=== PATIENT | female | born 1940 | race Two or more races ===

== ENCOUNTER 2025-07-13 16:37 | Inpatient (IN) | payer MEDICARE, OTHER ==
[~2025-07-13] VITALS: Ht 162.6 cm; Wt 73.9 kg
[2025-07-13 17:55] LABS: PLATELET COUNT (AUTO) 149 K/uL (150-450); RED BLOOD CELL COUNT(AUTO) 4.87 MIL/uL (4.0-5.2); RED CELL DISTRIBUTION WIDTH 16.1 % (11.5-15.0); WHITE BLOOD COUNT (AUTO) 6.1 K/uL (4.3-11.0)
[2025-07-13 18:01] LABS: CALCIUM, SERUM 9.2 mg/dL (8.5-10.1); CREATININE 1.2 mg/dL (0.6-1.3); SERUM AMMONIA 3 umol/L (11-32); SODIUM SERUM 143 mmol/L (136-145); UREA NITROGEN, BLOOD 38 mg/dL (7-18)
[2025-07-13 18:06] LABS: ASPARTATE AMINOTRANSFERASE 28 U/L (15-37); TOTAL PROTEIN, SERUM 7.1 g/dL (6.4-8.2)
[2025-07-13 18:07] LABS: ALCOHOL, BLOOD < 3 mg/dL (0-10)
[2025-07-13 18:13] LABS: APPEARANCE,URINE SLIGHTLY CLOUDY (CLEAR); BLOOD, URINE 1+ Ery/uL (NEGATIVE); LEUKOCYTE ESTERASE ,URINE 2+ (NEGATIVE); NITRITE, URINE NEGATIVE (NEGATIVE); UGLUCOSE 1+ mg/dL (NEGATIVE)
[2025-07-13 18:20] LABS: AMPHETAMINE, URINE NEGATIVE (NEGATIVE); BARBITURATE, URINE NEGATIVE (NEGATIVE); BENZODIAZEPINE, URINE NEGATIVE (NEGATIVE); CANNABINOID, URINE NEGATIVE (NEGATIVE); COCCAINE, URINE NEGATIVE (NEGATIVE); OPIATE, URINE NEGATIVE (NEGATIVE)
[2025-07-13 18:30] LABS: ADD URINE CULTURE YES; SQUAMOUS EPITHELIAL CELL,UR Few /HPF (None Seen); YEAST,URINE Moderate /HPF (None Seen)
[2025-07-13] MEDS ORDERED: L. A1TAB10 PO (18:48)
[2025-07-13] MEDS ORDERED: BUPR150T5 PO (18:48)
[2025-07-13] MEDS ORDERED: METO25TA6 PO (18:48)
[2025-07-13] MEDS ORDERED: LINA290C PO (18:48)
[2025-07-13] MEDS ORDERED: ALBU5SOL7 IH (18:48)
[2025-07-13] MEDS ORDERED: DAPA5TAB PO (18:48)
[2025-07-13] MEDS ORDERED: NETA2.5D3 EACHEYE (18:48)
[2025-07-13] MEDS ORDERED: MELA5TAB PO (18:48)
[2025-07-13] MEDS ORDERED: ERGO500040 PO (18:48)
[2025-07-13] MEDS ORDERED: MAGN400T26 PO (18:48)
[2025-07-13] MEDS ORDERED: CLON0.5T4 PO (18:48)
[2025-07-13] MEDS ORDERED: DICL100G34 TP (18:48)
[2025-07-13] MEDS ORDERED: BUDE0.5A4 IH (18:48)
[2025-07-13] MEDS ORDERED: APIX2.5T PO (18:48)
[2025-07-13] MEDS ORDERED: ESCI20TA PO (18:48)
[2025-07-13] MEDS ORDERED: ACET-73 PO (18:48)
[2025-07-13] MEDS ORDERED: TIMO5DRO31 EACHEYE (18:48)
[2025-07-13] MEDS ORDERED: FURO-145 PO (18:48)
[2025-07-13] MEDS ORDERED: GUAI600T53 PO (18:48)
[2025-07-13] MEDS ORDERED: ATOR10TA PO (18:48)
[2025-07-13] MEDS ORDERED: BACL5TAB PO ×2 (18:48)
[2025-07-13] MEDS ORDERED: SIME80TA15 PO (18:48)
[2025-07-13] MEDS ORDERED: BISA5TAB10 PO (18:48)
[2025-07-13] MEDS ORDERED: PANT40TA49 PO (18:48)
[2025-07-13 20:30] VITALS: BP 140/86; TEMP 97.5; O2SAT 98
[2025-07-13] MEDS ORDERED: MAGNESIUM HYDROXIDE 30 ML UDC PO PRN (20:30)
[2025-07-13] MEDS ORDERED: GUAIFENESIN LA 600 MG TABLET.SA PO PRN (20:30)
[2025-07-13] MEDS ORDERED: ONDANSETRON HCL/PF 4 MG/2 ML VIAL IVP PRN (20:30)
[2025-07-13] MEDS ORDERED: ACETAMINOPHEN 325 MG TABLET PO PRN (20:30)
[2025-07-13] MEDS: FLUCONAZOLE (100 MG) 100 MG TABLET PO ONE (21:49)
[2025-07-13] MEDS: ATORVASTATIN 10 MG TABLET PO SCH (21:49)
[2025-07-13] MEDS: CEFTRIAXONE 1 G in IV D5W 50 ML IV SCH (21:50)
[2025-07-14] VITALS (11 sets, daily range): BP systolic 131–144; BP diastolic 78–96; TEMP 97.5–98.2; O2SAT 97–100
[2025-07-14 06:19] LABS: PLATELET COUNT (AUTO) 143 K/uL (150-450); RED BLOOD CELL COUNT(AUTO) 4.63 MIL/uL (4.0-5.2); RED CELL DISTRIBUTION WIDTH 16.0 % (11.5-15.0); WHITE BLOOD COUNT (AUTO) 6.9 K/uL (4.3-11.0)
[2025-07-14 06:40] LABS: ASPARTATE AMINOTRANSFERASE 22 U/L (15-37); CALCIUM, SERUM 8.9 mg/dL (8.5-10.1); CREATININE 1.2 mg/dL (0.6-1.3); NT-PRO BNP 1932 pg/mL (0-125); PHOSPHORUS 4.6 mg/dL (2.5-4.9); SODIUM SERUM 140 mmol/L (136-145); TOTAL PROTEIN, SERUM 6.5 g/dL (6.4-8.2); UREA NITROGEN, BLOOD 38 mg/dL (7-18)
[2025-07-14 07:11] LABS: LDL 104 mg/dL (0-99)
[2025-07-14] MEDS ORDERED: PANTOPRAZOLE 40 MG TABLET.DR PO SCH (07:30)
[2025-07-14] MEDS ORDERED: Z GUARD REMEDY 4 OZ OINT TP PRN (08:00)
[2025-07-14] MEDS: DICLOFENAC TOPICAL 100 GM TUBE TP SCH (10:32)
[2025-07-14] MEDS: Z GUARD REMEDY 4 OZ OINT TP SCH (10:32)
[2025-07-14] MEDS: FUROSEMIDE 20 MG TABLET PO SCH (10:33)
[2025-07-14] MEDS: ACIDOPHILUS/BULGARICUS 1 EACH TAB.CHEW PO SCH (10:33)
[2025-07-14] MEDS: DAPAGLIFLOZIN PROPANEDIOL 5 MG TABLET PO SCH (10:33)
[2025-07-14] MEDS: buPROPion SR 150 MG TABLET.ER PO SCH (10:33)
[2025-07-14] MEDS: MAGNESIUM OXIDE 400 MG TABLET PO SCH (10:33)
[2025-07-14] MEDS: METOPROLOL TARTRATE 25 MG TABLET PO SCH (10:38)
[2025-07-14] MEDS: BISACODYL (5 MG) 5 MG TABLET.DR PO SCH (10:38)
[2025-07-14] MEDS: PANTOPRAZOLE 40 MG TABLET.DR PO SCH (10:38)
[2025-07-14] MEDS: ESCITALOPRAM OXALATE (10 MG) 10 MG TABLET PO SCH (10:39)
[2025-07-14] MEDS: APIXABAN 2.5 MG TABLET PO SCH (10:46)
[2025-07-14] MEDS: FUROSEMIDE 40 MG/4 ML VIAL IV ONE (14:10)
[2025-07-14] MEDS: ALBUTEROL FS 2.5 MG/3 ML VIAL.NEB NEB SCH (18:06)
[2025-07-14] MEDS: IPRATROPIUM NEB FS 0.5 MG/2.5 ML AMPUL.NEB NEB SCH (18:06)
[2025-07-15] VITALS (14 sets, daily range): BP systolic 118–134; BP diastolic 69–85; TEMP 97.3–97.9; O2SAT 95–100
[2025-07-15] MEDS: ACETAMINOPHEN ES 500 MG TABLET PO PRN (01:22)
[2025-07-15 08:01] LABS: CALCIUM, SERUM 8.7 mg/dL (8.5-10.1); CREATININE 1.4 mg/dL (0.6-1.3); NT-PRO BNP 1982 pg/mL (0-125); PHOSPHORUS 5.6 mg/dL (2.5-4.9); PLATELET COUNT (AUTO) 138 K/uL (150-450); RED BLOOD CELL COUNT(AUTO) 5.13 MIL/uL (4.0-5.2); RED CELL DISTRIBUTION WIDTH 16.4 % (11.5-15.0); SODIUM SERUM 136 mmol/L (136-145); UREA NITROGEN, BLOOD 39 mg/dL (7-18); WHITE BLOOD COUNT (AUTO) 6.2 K/uL (4.3-11.0)
[2025-07-15] MEDS: BUPROPION XL 150 MG TAB.ER.24 PO SCH (08:37)
[2025-07-15] MEDS: ERGOCALCIFEROL (VITAMIN D 2) 50,000 UNIT CAPSULE PO SCH (09:29)
[2025-07-15] MEDS: ENSURE ENLIVE 237 ML LIQUID (VANILLA) PO SCH (18:49)
[2025-07-15] MEDS: HOME MED MISCELLANEOUS EACHEYE SCH (22:09)
[2025-07-16] VITALS (15 sets, daily range): BP systolic 106–133; BP diastolic 48–74; TEMP 97.5–98.1; O2SAT 94–100
[2025-07-16 11:37] LABS: PLATELET COUNT (AUTO) 96 K/uL (150-450); RED BLOOD CELL COUNT(AUTO) 5.62 MIL/uL (4.0-5.2); RED CELL DISTRIBUTION WIDTH 16.5 % (11.5-15.0); WHITE BLOOD COUNT (AUTO) 8.2 K/uL (4.3-11.0)
[2025-07-16 11:42] LABS: CALCIUM, SERUM 9.1 mg/dL (8.5-10.1); CREATININE 1.3 mg/dL (0.6-1.3); PHOSPHORUS 5.2 mg/dL (2.5-4.9); SODIUM SERUM 138.0 mmol/L (136-145); UREA NITROGEN, BLOOD 45.0 mg/dL (7-18)
[2025-07-16 13:28] LABS: EOSINOPHILS % (MANUAL) 5 % (0-4); LYMPHOCYTES % (MANUAL) 13 % (16-48); MONOCYTES % (MANUAL) 1 % (0-11.0); NEUTROPHILS % (MANUAL) 81 (42-76); PLATELET ESTIMATE DECREASED
[2025-07-16] MEDS: MAG HYDROX/AL HYDROX/SIMETH 30 ML UDC PO PRN (22:02)
[2025-07-17] VITALS (19 sets, daily range): BP systolic 120–141; BP diastolic 62–71; TEMP 97.7–97.9; O2SAT 95–100
[2025-07-17 07:59] LABS: PLATELET COUNT (AUTO) 144 K/uL (150-450); RED BLOOD CELL COUNT(AUTO) 4.69 MIL/uL (4.0-5.2); RED CELL DISTRIBUTION WIDTH 16.0 % (11.5-15.0); WHITE BLOOD COUNT (AUTO) 7.4 K/uL (4.3-11.0)
[2025-07-17 08:19] LABS: CALCIUM, SERUM 8.9 mg/dL (8.5-10.1); CREATININE 1.5 mg/dL (0.6-1.3); PHOSPHORUS 4.2 mg/dL (2.5-4.9); SODIUM SERUM 137.0 mmol/L (136-145); UREA NITROGEN, BLOOD 46.0 mg/dL (7-18)
[2025-07-17] MEDS ORDERED: CEPH500C2 PO (09:19)
[2025-07-17] MEDS: SIMETHICONE 80 MG TAB.CHEW PO PRN (23:20)
[2025-07-18 08:00] VITALS: BP 142/80; TEMP 97.5; O2SAT 98
[2025-07-18 11:05] VITALS: O2SAT 97
[2025-07-18 11:20] VITALS: O2SAT 98
[2025-07-18 14:59] VITALS: O2SAT 94
[2025-07-18 16:00] VITALS: BP 115/65; TEMP 97.9; O2SAT 96
[2025-07-18] MEDS: NYSTATIN CREAM 15 GM TUBE TP SCH (17:13)
[2025-07-18 17:15] VITALS: BP 116/65
== END 2025-07-18 17:40 | disposition home health service (06) | DRG 73 ==
LOC: ER 16:40 → TELE 19:36 → MED 07-17 11:37
PROVIDERS: ADMIT Nurse Practitioner Family; ATTEND Nurse Practitioner Acute Care
DX: G90.89 Other disorders of autonomic nervous system (principal); G93.41 Metabolic encephalopathy; I50.33 Acute on chronic diastolic (congestive) heart failure; E44.1 Mild protein-calorie malnutrition; I13.0 Hypertensive heart and chronic kidney disease with heart failure and stage 1 through stage 4 chronic kidney disease, or unspecified chronic kidney disease; Z99.81 Dependence on supplemental oxygen; E86.0 Dehydration; E88.09 Other disorders of plasma-protein metabolism, not elsewhere classified; I48.91 Unspecified atrial fibrillation; N39.0 Urinary tract infection, site not specified; N17.9 Acute kidney failure, unspecified; Z79.01 Long term (current) use of anticoagulants; B96.89 Other specified bacterial agents as the cause of diseases classified elsewhere; F32.A Depression, unspecified; J45.909 Unspecified asthma, uncomplicated; N18.9 Chronic kidney disease, unspecified; I11.0 Hypertensive heart disease with heart failure; Z20.822 Contact with and (suspected) exposure to COVID-19; E78.5 Hyperlipidemia, unspecified; Z95.0 Presence of cardiac pacemaker; I25.10 Atherosclerotic heart disease of native coronary artery without angina pectoris; F41.9 Anxiety disorder, unspecified; H40.9 Unspecified glaucoma; Z88.6 Allergy status to analgesic agent; Z79.51 Long term (current) use of inhaled steroids; Z79.899 Other long term (current) drug therapy; Z79.84 Long term (current) use of oral hypoglycemic drugs
CPT/HCPCS: 36415; 70450-TC; 71045-TC; 80048-TC; 80061-TC; 80076-TC; 81001; 82140-TC; 82962-TC; 83735-TC; 83880; 84100-TC; 84443-TC; 84484-TC; 85025-TC; 85027-TC; 87086-TC; 92526; 92611; 93307-TC; 93880-TC; 94760-TC; 94761-TC; 94762-TC; 94799-TC; 97530-TC; A4223; G0378; G0480; J0696; J1938; J7050; J7060